=== PATIENT | male | born 1950 | race Caucasian/White ===

== ENCOUNTER 2016-06-26 08:08 | Emergency (ER) | payer BC, MEDICAID ==
[2016-06-26] MEDS ORDERED: MAGNESIUM CITRATE 296 ML BTL PO ONE (09:59)
--- NOTE | 2016-06-26 10:06 | Emergency Department Record ---
History of Present Illness - General Chief Complaint: Abdominal Pain Stated Complaint: CANT HAVE BM Time Seen by Provider: 06/26/16 08:28 Source: Patient Mode of Arrival: Ambulatory Limitations: No limitations - History of Present Illness Initial Comments: pt is constipated. last bm was 2 days ago. no abd pain. pt said he lives alone as his father recently . Complaint: Abdominal pain Onset/Timin -: Days(s) Improves With: Bowel movement Worsens With: Nothing Associated Symptoms: Constipation - Related Data Home Medications Medication Instructions Recorded Confirmed Last Taken Metformin HCl 1,000 mg PO BID tab 05/06/16 06/26/16 06/25/16 Previous Rx's Medication Instructions Recorded Magic Butt Cream 1 apply TOP ASDIR #30 gm 06/26/16 Allergies Allergy/AdvReac Type Severity Reaction Status Date / Time Penicillins Allergy RASH Verified 06/26/16 08:15 Travel Screening - Travel/Exposure Within Last 30 Days Have you traveled within the last 30 days?: No - Travel/Exposure Within Last Year Have you traveled outside the [place] in the last year?: No - Additonal Travel Details Have you been exposed to anyone with a communicable illness?: No - Travel Symptoms Symptom Screening: None Review of Systems Reviewed: No additional complaints except as noted below Constitutional: Reports: As per HPI. Denies: Chills, Fever, Malaise, Night sweats, Weakness, Weight change Eyes: Reports: As per HPI. Denies: Eye discharge, Eye pain, Photophobia, Vision change ENT: Reports: As per HPI. Denies: Congestion, Dental pain, Ear pain, Epistaxis , Hearing loss, Throat pain Respiratory: Reports: As per HPI. Denies: Cough, Dyspnea, Hemoptysis, Stridor, Wheezes Cardiovascular: Reports: As per HPI. Denies: Arrhythmia, Chest pain, Dyspnea on exertion, Edema, Murmurs, Orthopnea, Palpitations, Paroxysmal nocturnal dyspnea, Rheumatic Fever, Syncope Endocrine: Reports: As per HPI. Denies: Fatigue, Heat or cold intolerance, Polydipsia, Polyuria Gastrointestinal: Reports: As per HPI. Denies: Abdominal pain, Constipation, Diarrhea, Hematemesis, Hematochezia, Melena, Nausea, Vomiting Genitourinary: Reports: As per HPI. Denies: Dysuria, Frequency, Hematuria, Incontinence, Retention, Testicular pain, Testicular mass, Urgency Musculoskeletal: Reports: As per HPI. Denies: Arthralgia, Back pain, Gout, Joint swelling, Myalgia, Neck pain Skin: Reports: As per HPI. Denies: Bruising, Change in color, Change in hair/ nails, Lesions, Pruritus, Rash Neurological: Reports: As per HPI. Denies: Abnormal gait, Confusion, Headache, Numbness, Paresthesias, Seizure, Tingling, Tremors, Vertigo, Weakness Psychiatric: Reports: As per HPI. Denies: Anxiety, Auditory hallucinations, Depression, Homicidal thoughts, Suicidal thoughts, Visual hallucinations Hematological/Lymphatic: Reports: As per HPI. Denies: Anemia, Blood Clots, Easy bleeding, Easy bruising, Swollen glands Past Medical History - SOCIAL HISTORY Smoking Status: Never smoker Alcohol Use: None Drug Use: None - RESPIRATORY Hx Respiratory Disorders: No - CARDIOVASCULAR Hx Cardio Disorders: No - NEURO Hx Neuro Disorders: No - GI Hx GI Disorders: No - Hx Genitourinary Disorders: No - ENDOCRINE Hx Endocrine Disorders: Yes Hx Diabetes: Yes - MUSCULOSKELETAL Hx Musculoskeletal Disorders: No - PSYCH Hx Psych Problems: No - HEMATOLOGY/ONCOLOGY Hx Hematology/Oncology Disorders: No Family Medical History Any Significant Family History?: No Physical Exam - General General Appearance: Alert, Oriented x3, Cooperative, No acute distress - Head Head exam: Normal inspection - Eye Eye exam: Normal appearance, PERRL, EOMI Pupils: Normal accommodation - ENT ENT exam: Normal exam, Mucous membranes moist, Normal external ear exam, Normal orophraynx Ear exam: Normal external inspection. negative: External canal tenderness Nasal Exam: Normal inspection. negative: Discharge, Sinus tenderness Mouth exam: Normal external inspection, Tongue normal Teeth exam: Normal inspection. negative: Dental caries Throat exam: Normal inspection. negative: Tonsillar erythema, Tonsillar exudate - Neck Neck exam: Normal inspection, Full ROM. negative: Tenderness - Respiratory Respiratory exam: Normal lung sounds bilaterally. negative: Respiratory distress - Cardiovascular Cardiovascular Exam: Regular rate, Normal rhythm, Normal heart sounds - GI/Abdominal GI/Abdominal exam: Soft, Normal bowel sounds, Other (erythema to panus). negative: Tenderness - Rectal Rectal exam: Deferred - exam: Deferred - Extremities Extremities exam: Normal inspection, Full ROM, Normal capillary refill. negative: Tenderness - Back Back exam: Reports: Normal inspection, Full ROM. Denies: Muscle spasm, Rash noted, Tenderness - Neurological Neurological exam: Alert, CN II-XII intact, Normal gait, Oriented X3 - Psychiatric Psychiatric exam: Normal affect, Normal mood - Skin Skin exam: Dry, Erythema, Intact, Normal color, Warm Distribution of rash: Abdomen (under panus) Description of rash: Erythematous Course Vital Signs 06/26/16 08:17 Temperature 97.5 F L Pulse Rate 91 H Respiratory 18 Rate Blood Pressure 120/67 Pulse Ox 97 Disposition Disposition: Discharge Clinical Impression: Constipation by delayed colonic transit, Candidal dermatitis Disposition: Home, Self-Care Condition: (1) Good Instructions: Constipation (ED), Zinc Oxide (On the skin), Acute Rash (ED) Additional Instructions: drink 2nd half of mag citrate tonight if you have not had a bowel movement yet. return sooner if worse Prescriptions: Magic Butt Cream 1 apply TOP ASDIR #30 gm Forms: Patient Portal Access
--- NOTE | 2016-06-27 15:04 | RADIOLOGY REPORT ---
DATE: 06/26/2016 at 9:24 a.m. EXAM: ACUTE ABDOMINAL SERIES. HISTORY: Abdominal pain. Constipation. TECHNIQUE: AP, supine, and upright views of the abdomen are obtained as well as an upright PA view of the chest. COMPARISON: Two-view chest radiographic examination dated 09/12/2013. FINDINGS: There is a moderate to large amount of stool throughout the colon to the level of the rectum. No bowel dilatation nor worrisome mass is, however, seen. No free intraperitoneal air. There is a somewhat linear calcific density projecting near the expected level of the lower pole of the right kidney measuring 3.5 mm. While this may just represent intraluminal bowel content, a renal calculus cannot be excluded. No other abnormal calcification is seen. There are mild degenerative changes scattered throughout the visualized spine and hips. The cardiomediastinal silhouette is normal in size and configuration. The pulmonary vasculature is nondilated. The lungs and pleural spaces remain clear. IMPRESSION: 1. A LARGE AMOUNT OF STOOL WITHIN THE COLON AND RECTUM. NO EVIDENCE OF MECHANICAL BOWEL OBSTRUCTION OR FREE INTRAPERITONEAL AIR. 2. A 3.5 MM LINEAR CALCIFIC DENSITY PROJECTING NEAR THE LEVEL OF THE LOWER POLE OF THE RIGHT KIDNEY, DISCUSSED ABOVE. 3. NO EVIDENCE OF ACUTE CARDIOPULMONARY DISEASE. JOB NUMBER: [id number] [facility]
== END 2016-06-26 11:13 | disposition home or self-care (01) ==
LOC: ER 08:08
DX: K59.01 Slow transit constipation (principal); B37.2 Candidiasis of skin and nail
CPT/HCPCS: 74022; 99283